=== PATIENT | female | born 1935 | race Caucasian/White ===

== ENCOUNTER 2016-12-24 16:20 | Emergency (ER) | payer MEDICAID ==
[~2016-12-24] VITALS: Ht 154.9 cm; Wt 76.7 kg
[2016-12-24 17:17] VITALS: BP 152/80
[2016-12-24] MEDS ORDERED: NACL 0.9% 1,000 ML IV ONE (18:32)
[2016-12-24] MEDS ORDERED: ALUMINUM HYD/MAG/SIMETHICONE 30 ML, DICYCLOMINE HCL LIQUID 20 MG, LIDOCAINE VISCOUS 2% ... PO ONE ×3 (18:35)
[2016-12-24] MEDS ORDERED: ONDANSETRON 4 MG/2 ML VIAL IVP ONE (18:35)
--- NOTE | 2016-12-24 18:57 | NUR ---
LABS DRAWN IN TRIAGE---MEDICATED FOR PAIN CONTROL WILL CONTINUE TO WAIT FOR AVAILABLE ROOM FOR MD GALEANA====
[2016-12-24 19:18] LABS: BASOPHILS # (AUTO) 0.3 K/uL (0.00-0.22); EOSINOPHILS # (AUTO) 0.3 K/uL (0-0.4); EOSINOPHILS % (AUTO) 3.3 % (0.0-4.0); HEMATOCRIT 40.3 % (36-48); HEMOGLOBIN 13.4 g/dL (12.0-16.0); LYMPHOCYTES # (AUTO) 2.4 K/uL (2.5-16.5); LYMPHOCYTES % (AUTO) 27.1 % (20.5-51.1); MEAN CORPUSCULAR HEMOGLOBIN 29 pg (27-31); MEAN CORPUSCULAR HGB CONC 33 g/dL (33-37); MEAN CORPUSCULAR VOLUME 88 fL (80-94); MONOCYTES # (AUTO) 0.7 K/uL (0.8-1.0); MONOCYTES % (AUTO) 7.7 % (1.7-9.3); PLATELET COUNT (AUTO) 241 K/uL (140-450); RED BLOOD CELL COUNT(AUTO) 4.55 MIL/uL (4.20-5.40); RED CELL DISTRIBUTION WIDTH 13.1 % (11.6-13.7); WHITE BLOOD COUNT (AUTO) 8.7 K/uL (4.8-10.8)
[2016-12-24 19:39] LABS: ANION GAP 11.4 (8-16); CALCIUM 8.6 mg/dL (8.5-10.1); CARBON DIOXIDE 31.4 mmol/L (21-32); CHLORIDE 104 mmol/L (98-107); CREATININE 0.8 mg/dL (0.6-1.3); GLUCOSE 95 mg/dL (74-106); POTASSIUM 3.8 mmol/L (3.5-5.1); SODIUM SERUM 143 mmol/L (136-145); UREA NITROGEN, BLOOD 12 mg/dL (7-18)
[2016-12-24 19:45] LABS: ALANINE AMINOTRANSFERASE 21 U/L (12-78); ALBUMIN 3.9 g/dL (3.4-5.0); ALKALINE PHOSPHATASE 57 U/L (46-116); AMYLASE 60 U/L (25-115); ASPARTATE AMINOTRANSFERASE 20 U/L (15-37); LIPASE 100 U/L (73-393); TOTAL BILIRUBIN 0.4 mg/dL (0.0-1.0); TOTAL PROTEIN, SERUM 8.3 g/dL (6.4-8.2)
--- NOTE | 2016-12-24 22:00 | NUR ---
PATIENT TO ER BED 8.
[2016-12-24 22:04] LABS: BILIRUBIN,URINE NEGATIVE (NEGATIVE); BLOOD, URINE NEGATIVE (NEGATIVE); COLOR,URINE YELLOW (YELLOW); LEUKOCYTE ESTERASE ,URINE NEGATIVE (NEGATIVE); NITRITE, URINE NEGATIVE (NEGATIVE); PROTEIN,URINE NEGATIVE (NEGATIVE); UGLUCOSE NEGATIVE (NEGATIVE); UROBILINOGEN,URINE 0.2 EU/dL (0.2 - 1)
[2016-12-24 22:05] LABS: APPEARANCE,URINE CLEAR (CLEAR)
--- NOTE | 2016-12-24 22:05 | NUR ---
C/O LUQ PAIN X 2 MONTHS USUALLY AT NIGHT WITH NAUSEA---DENIES WATER/LOOS STOOLS. PT STATES SHE HAS BEEN HAVING LEFT FLANK PAIN WITH A HARD NODULE TO THE LEFT BREAST X 2 WEEKS HX----HTN, HYPERLIPIDEMIA, ARTHRITIS, OSTEOPOROSIS
--- NOTE | 2016-12-24 22:22 | NUR ---
PATIENT BEING EVALUATED BY DR. LOPEZ.
[2016-12-24] MEDS ORDERED: KETOROLAC 60 MG/2 ML VIAL IM ONE ×2 (22:25)
[2016-12-24 23:16] VITALS: BP 136/84
--- NOTE | 2016-12-24 23:16 | NUR ---
Patient discharged with v/s stable. Written and verbal after care instructions given and explained. Patient alert, oriented and verbalized understanding of instructions. Ambulatory with steady gait. All questions addressed prior to discharge. ID band removed. Patient advised to follow up with PMD. Rx of MOTRIN 800MG AND PRILOSEC 40MG given. Patient educated on indication of medication including possible reaction and side effects. Opportunity to ask questions provided and answered.
== END 2016-12-24 23:16 | disposition home or self-care (01) ==
LOC: MED 16:20
DX: R10.12 Left upper quadrant pain (principal); Z88.0 Allergy status to penicillin; I10 Essential (primary) hypertension
CPT/HCPCS: 36415; 74176; 80053; 81003; 82150; 83690; 84484; 85025; 93005; 96372; 99285; J1885

== ENCOUNTER 2017-06-29 22:41 | Inpatient (IN) | payer MEDICAID ==
[~2017-06-29] VITALS: Ht 152.4 cm; Wt 61.2 kg
[2017-06-29 22:57] VITALS: BP 110/57
--- NOTE | 2017-06-29 23:01 | NUR ---
PT PROVIDED URINE CUP
--- NOTE | 2017-06-29 23:09 | NUR ---
pt to lobby awaiting room for MSE. VSS.
--- NOTE | 2017-06-30 02:04 | NUR ---
Patient to bed 12. RN evaluating patient at bedside.
--- NOTE | 2017-06-30 02:08 | NUR ---
Note undone in EDM - 06/30/17 at 0213 by VALDO PT BIB FAMILY C/O AB PAIN; FEVER 97.6F , CHILLS AND COUGH X 1 WEEK . PT DENIES N/V/D; SKIN IS INTACT, PINK/WARM/DRY; AAOX4, PERRL, WITH EVEN AND STEADY GAIT; LUNGS CLEAR BL, BREATHING UNLABORED; HR EVEN AND REGULAR, BL PERIPHERAL PULSES PRESENT; BS ACTIVE X4, NO TENDERNESS TO PALPATION, NO HEPATOSPLENOMEGALLY PALPATED, RESONANT TO PERCUSSION; PT DENIES ANY CP, SOB AT THIS TIME; PT STATES 4/10 PAIN AT THIS TIME; VSS; PATIENT POSITIONED FOR COMFORT; HOB ELEVATED; BEDRAILS UP X2; BED DOWN.
--- NOTE | 2017-06-30 02:09 | NUR ---
PT BIB FAMILY C/O AB PAIN; FEVER 97.6F , CHILLS AND COUGH X 1 WEEK . PT C/O MILD N/V; SKIN IS INTACT, PINK/WARM/DRY; AAOX4, PERRL, WITH EVEN AND STEADY GAIT; LUNGS CLEAR BL, BREATHING UNLABORED; HR EVEN AND REGULAR, BL PERIPHERAL PULSES PRESENT; BS ACTIVE X4, MILD TENDERNESS TO PALPATION. PT DENIES ANY CP, SOB AT THIS TIME; PT STATES 5/10 PAIN AT THIS TIME; VSS; PATIENT POSITIONED FOR COMFORT; HOB ELEVATED; BEDRAILS UP X2; BED DOWN. ABD NOTED TO BE SLIGHT DISTENDED WITH HYPOACTIVE BS NOTED. UA DONE
[2017-06-30] MEDS ORDERED: LISI10TA11 PO (02:25)
[2017-06-30] MEDS ORDERED: ALBU117P IH (02:25)
[2017-06-30] MEDS ORDERED: IBUP-2213 PO (02:25)
[2017-06-30] MEDS ORDERED: LEVOFLOXACIN 500 MG/D5W PREMIX 100 ML IV ONE (02:25)
[2017-06-30] MEDS ORDERED: NACL 0.9% 1,000 ML IV ONE (02:25)
[2017-06-30] MEDS ORDERED: CHLO25TA33 PO (02:26)
[2017-06-30 03:11] LABS: HEMATOCRIT 40.4 % (36-48); HEMOGLOBIN 13.4 g/dL (12.0-16.0); MEAN CORPUSCULAR HEMOGLOBIN 29 pg (27-31); MEAN CORPUSCULAR HGB CONC 33 g/dL (33-37); MEAN CORPUSCULAR VOLUME 89 fL (80-94); PLATELET COUNT (AUTO) 236 K/uL (140-450); RED BLOOD CELL COUNT(AUTO) 4.57 MIL/uL (4.20-5.40); RED CELL DISTRIBUTION WIDTH 12.8 % (11.6-13.7); WHITE BLOOD COUNT (AUTO) 13.6 K/uL (4.8-10.8)
[2017-06-30 03:16] LABS: ANION GAP 8.5 (8-16); CARBON DIOXIDE 35.7 mmol/L (21-32); CHLORIDE 95 mmol/L (98-107); CREATININE 1.5 mg/dL (0.6-1.3); GLUCOSE 101 mg/dL (74-106); POTASSIUM 3.2 mmol/L (3.5-5.1); SODIUM SERUM 136 mmol/L (136-145); UREA NITROGEN, BLOOD 30 mg/dL (7-18)
[2017-06-30 03:22] LABS: ALBUMIN 2.9 g/dL (3.4-5.0); ASPARTATE AMINOTRANSFERASE 40 U/L (15-37); TOTAL BILIRUBIN 0.7 mg/dL (0.0-1.0)
[2017-06-30 03:34] LABS: EOSINOPHILS % (MANUAL) 2 % (0-4); LYMPHOCYTES % (MANUAL) 18 % (20-46); MONOCYTES % (MANUAL) 2 % (5-12)
--- NOTE | 2017-06-30 04:05 | NUR ---
AZACTAM 1000MG NOT GIVEN, LEVAQUIN WAS GIVEN OVER 1 HOUR, TELE TO INFUSE
[2017-06-30] MEDS: NACL 0.9% 1,000 ML IV SCH ×2 (04:09→14:02)
[2017-06-30] MEDS ORDERED: ALBUTEROL SULFATE/IPRATROPIU 3 ML SOL IH PRN (04:10)
[2017-06-30] MEDS ORDERED: ONDANSETRON 4 MG/2 ML VIAL IVP PRN (04:10)
[2017-06-30] MEDS ORDERED: POTASSIUM CHLORIDE 10 MEQ TABER PO ONE (04:25)
--- NOTE | 2017-06-30 04:26 | NUR ---
Patient will be admitted to care of DR BRANNON. Admited to TELE 118. Will go to room 118. Belongings list completed. Report to AL LOWE .
[2017-06-30 04:30] VITALS: BP 126/65
--- NOTE | 2017-06-30 04:30 | NUR ---
Admitted from ER, with chief complaint of SOB, FEVER, BODY ACHES, DX ASP PNA 82 y/o, Female, Anxious, TURKISH-SPEAKING. PT'S DAUGHTER AT BEDSIDE. STARCH FACTORY LABORER SERVICE USED FOR ADMISSION PROCESS, JOVANI #[id number], PT ALSO AGREED TO HAVE PT'S DAUGHTER TRANSLATE FOR PT. PT AWAKE AND ALERT, C/O BODY ACHES. SPO2 95% ON O2 2L NC, RR 18 EVEN AND UNLABORED. IV ACCESS ASYMPTOMATIC, PATENT AND INTACT. WILL ADMINISTER IVF ORDERED. DISCUSSED AND REVIEWED PLAN OF CARE WITH PT AND PT'S DAUGHTER, VERBALIZED UNDERSTANDING. PT INSTRUCTED TO COLLECT URINE AND SPUTUM SAMPLES. PT VERBALIZED UNDERSTANDING. oriented to call light, bed, phone,television, bathroom, smoking policy, visiting hours, procedures, ID bracelet on. Belongings list checked.+ ALL NEEDS MET. SAFETY MEASURES ENSURED. CALL LIGHT WITHIN REACH. WILL CONTINUE TO MONITOR.
[2017-06-30] MEDS ORDERED: AZTREONAM 1,000 MG VIAL ONE (04:46)
[2017-06-30] MEDS ORDERED: CLINDAMYCIN 600 MG/4 ML VIAL ONE (04:46)
[2017-06-30] MEDS ORDERED: AZTREONAM 1,000 MG in DEXTROSE 5% 50 ML IV SCH (05:00)
[2017-06-30] MEDS: CLINDAMYCIN 600 MG in DEXTROSE 5% 50 ML IV SCH ×3 (05:57→20:12)
--- NOTE | 2017-06-30 07:15 | NUR ---
RECIEVEDT FROM NIGHT RN. PT STABLE. PT IN CONTACT ISO.
--- NOTE | 2017-06-30 07:15 | NUR ---
ENDORSED PLAN OF CARE TO AM NURSE. CONDITION STABLE.
[2017-06-30] MEDS: ALBUTEROL SULFATE/IPRATROPIU 3 ML SOL IH SCH ×3 (07:24→19:04)
[2017-06-30 08:00] VITALS: BP 125/64
--- NOTE | 2017-06-30 08:00 | NUR ---
Patient's Plan of Care was discussed and reviewed with BURNISHING MACHINE OPERATOR: MICHELET
[2017-06-30 08:26] LABS: PROTHROMBIN TIME 9.7 secs (10.8-13.4)
[2017-06-30 09:01] LABS: FREE T4 (FREE THYROXINE) 1.32 ng/dL (0.76-1.46); MAGNESIUM 2.1 mg/dL (1.8-2.4); PHOSPHORUS 2.6 mg/dL (2.5-4.9); THYROID STIMULATING HORMONE 4.7 uIU/mL (0.34-3.74)
--- NOTE | 2017-06-30 09:49 | NUR ---
MED GIVEN. ALEXA WELL. PT LYING IN HER BED WITH HER EYES OPEN. FAMILY AT BEDSIDE
[2017-06-30] MEDS: DOCUSATE SODIUM 100 MG GELCAP PO SCH ×2 (09:52→20:12)
[2017-06-30] MEDS: LACTOBACILLUS RHAMNOSUS GG 1 EACH CAP PO SCH (09:53)
--- NOTE | 2017-06-30 09:55 | NUR ---
PATIENT HAS BEEN SCREENED AND CATEGORIZED HIGH NUTRITION RISK. PATIENT WILL BE SEEN WITHIN 1-2 DAYS OF ADMISSION. 06/30/17-07/01/[address]
--- NOTE | 2017-06-30 09:58 | NUR ---
MEDICATION GIVEN. PT HAS A PRODUCTIVE COUGH. SPU COLLECTED. URINE SAMPLE NOT YET GIVEN. ISO PRECAUTIONS IN PLACE. PT STABLE
--- NOTE | 2017-06-30 12:30 | NUR ---
PT IN ISOLATION PT HAS COUGH.
[2017-06-30 12:41] VITALS: BP 125/51
[2017-06-30 16:00] VITALS: BP 104/49
[2017-06-30 18:49] LABS: APPEARANCE,URINE CLEAR (CLEAR); BILIRUBIN,URINE NEGATIVE (NEGATIVE); BLOOD, URINE NEGATIVE (NEGATIVE); COLOR,URINE YELLOW (YELLOW); LEUKOCYTE ESTERASE ,URINE NEGATIVE (NEGATIVE); NITRITE, URINE NEGATIVE (NEGATIVE); UGLUCOSE NEGATIVE (NEGATIVE)
[2017-06-30 19:00] LABS: BARBITURATE, URINE NEG. ng/ml (NEG <=200); BENZODIAZEPINE, URINE NEG. ng/mL (NEG <=200); CANNABINOID, URINE NEG. ng/mL (NEG <=50); COCAINE, URINE NEG. ng/mL (NEG <=300); OPIATE, URINE NEG. ng/mL (NEG <=2000); PHENCYCLIDINE SCREEN,URINE NEG. ng/mL (NEG <=25)
--- NOTE | 2017-06-30 19:30 | NUR ---
PATIENT REPORT RECEIVED FROM MORNING NURSE. PATIENT IS AWAKE AND ALERT. NO SIGNS AND SYMPTOMS OF DISTRESS NOTED. PATIENT'S FAMILY IS AT BEDSIDE. PATIENT IS AZERI SPEAKING, DAUGHTER ABLE TO TRANSLATE TO PATIENT. IV SITE NOTED ON RIGHT HAND, ASYMPTOMATIC, INTACT AND PATENT. PATIENT IS ON 3L O2 NC. PLAN OF CARE DISCUSSED WITH PATIENT AND FAMILY, BOTH FAMILY AND PATIENT VERBALIZED UNDERSTANDING. SAFETY PRECAUTIONS IN PLACE. BED IN LOWEST POSITION, SIDE RAILS UP AND CALL LIGHT WITHIN REACH. WILL CONTINUE TO MONITOR. Addendum: 06/30/17 at 2207 by Calos Ames RN 2L O2 NOT 3L
[2017-06-30 20:00] VITALS: BP 130/62
[2017-06-30] MEDS: ACETAMINOPHEN 325 MG TAB PO PRN (20:13)
--- NOTE | 2017-06-30 21:45 | NUR ---
ASSISTED PATIENT WITH BED GARCIA. PATIENT VOIDED. URINE IS YELLOW AND MODERATE IN AMOUNT. PATIENT TOLERATED WELL. WILL CONTINUE TO MONITOR.
--- NOTE | 2017-06-30 22:51 | NUR ---
ASSISTED PATIENT WITH BED GARCIA. PATIENT VOIDED. URINE IS YELLOW AND MODERATE IN AMOUNT. PATIENT TOLERATED WELL. WILL CONTINUE TO MONITOR.
[2017-07-01] VITALS: BP 117/55
[2017-07-01] MEDS: NACL 0.9% 1,000 ML IV SCH ×3 (00:09→20:48)
--- NOTE | 2017-07-01 01:00 | NUR ---
CHECKED ON PATIENT. PATIENT IS ASLEEP. NO SIGNS AND SYMPTOMS OF DISTRESS NOTED. BREATHING EVEN AND UNLABORED. BED IN LOWEST POSITION, SIDE RAILS UP AND CALL LIGHT WITHIN REACH. WILL CONTINUE TO MONITOR.
--- NOTE | 2017-07-01 03:00 | NUR ---
ASSISTED PATIENT WITH BED GARCIA. PATIENT VOIDED. URINE IS YELLOW AND MODERATE IN AMOUNT. PATIENT TOLERATED WELL. WILL CONTINUE TO MONITOR.
[2017-07-01 04:00] VITALS: BP 138/74
[2017-07-01] MEDS: CLINDAMYCIN 600 MG in DEXTROSE 5% 50 ML IV SCH ×3 (04:07→20:49)
--- NOTE | 2017-07-01 05:00 | NUR ---
CHECKED ON PATIENT. PATIENT IS ASLEEP. NO SIGNS AND SYMPTOMS OF DISTRESS NOTED. BED IN LOWEST POSITION, SIDE RAILS UP AND CALL LIGHT WITHIN REACH. WILL CONTINUE TO MONITOR.
[2017-07-01 06:50] LABS: BASOPHILS # (AUTO) 0.1 K/uL (0.00-0.22); BASOPHILS % (AUTO) 1.1 % (0.0-2.0); EOSINOPHILS # (AUTO) 0.1 K/uL (0-0.4); EOSINOPHILS % (AUTO) 1.8 % (0.0-4.0); HEMATOCRIT 33.2 % (36-48); HEMOGLOBIN 11.3 g/dL (12.0-16.0); MEAN CORPUSCULAR HEMOGLOBIN 30 pg (27-31); MEAN CORPUSCULAR HGB CONC 34 g/dL (33-37); MEAN CORPUSCULAR VOLUME 88 fL (80-94); MONOCYTES # (AUTO) 0.6 K/uL (0.8-1.0); MONOCYTES % (AUTO) 9.1 % (1.7-9.3); NEUTROPHILS # (AUTO) 3.7 K/uL (1.8-7.7); PLATELET COUNT (AUTO) 242 K/uL (140-450); RED BLOOD CELL COUNT(AUTO) 3.78 MIL/uL (4.20-5.40); RED CELL DISTRIBUTION WIDTH 12.6 % (11.6-13.7); WHITE BLOOD COUNT (AUTO) 6.5 K/uL (4.8-10.8)
[2017-07-01 07:02] LABS: CHOL/HDL RATIO 5.5 (1-4.5); MAGNESIUM 1.8 mg/dL (1.8-2.4); PHOSPHORUS 3.5 mg/dL (2.5-4.9)
--- NOTE | 2017-07-01 07:12 | NUR ---
PATIENT REPORT GIVEN TO MORNING NURSE AT BEDSIDE. PATIENT IS IN STABLE CONDITION
--- NOTE | 2017-07-01 07:12 | NUR ---
RECIEVED PT FROM NIGHT NURSE. PT RESTING IN HER BED WITH HER EYES CLOSED
[2017-07-01] MEDS: ALBUTEROL SULFATE/IPRATROPIU 3 ML SOL IH SCH ×3 (07:14→19:13)
--- NOTE | 2017-07-01 08:00 | NUR ---
Patient's Plan of Care was discussed and reviewed with OVERHEAD LINE WORKER: MICHELET HIRSCH
[2017-07-01] MEDS: DOCUSATE SODIUM 100 MG GELCAP PO SCH ×2 (08:04→20:52)
[2017-07-01] MEDS: LACTOBACILLUS RHAMNOSUS GG 1 EACH CAP PO SCH (08:04)
[2017-07-01 08:49] LABS: ANION GAP 8.7 (8-16); CARBON DIOXIDE 33.3 mmol/L (21-32); CHLORIDE 101 mmol/L (98-107); CREATININE 0.9 mg/dL (0.6-1.3); GLUCOSE 94 mg/dL (74-106); SODIUM SERUM 140 mmol/L (136-145); UREA NITROGEN, BLOOD 12 mg/dL (7-18)
[2017-07-01 10:26] VITALS: BP 120/56
[2017-07-01] MEDS ORDERED: FAMOTIDINE 20 MG TAB PO SCH (11:07)
[2017-07-01] MEDS ORDERED: LISINOPRIL 10 MG TAB PO SCH (11:08)
[2017-07-01] MEDS ORDERED: LORATADINE 10 MG TAB PO SCH (11:10)
[2017-07-01] MEDS ORDERED: POTASSIUM CHLORIDE 10 MEQ TABER PO SCH (11:13)
--- NOTE | 2017-07-01 11:30 | NUR ---
B/S DONE COVERAGE NEEDED. PT LYING IN HER BED WITH HER EYES OPEN Addendum: 07/01/17 at 1303 by Karthik Silva LVN, LVN WRONG PATIENT NOTE
[2017-07-01] MEDS ORDERED: POTASSIUM CHLORIDE 40 MEQ, LIDOCAINE 1% 25 MG in NACL 0.9% 250 ML IV SCH (12:30)
--- NOTE | 2017-07-01 13:00 | NUR ---
PT FAMILY AT BEDSIDE. PT LYING IN HER BED EATING HER LUNCH
--- NOTE | 2017-07-01 15:02 | NUR ---
PLEASE REFER TO NUTRITION ASSESSMENT UNDER CARE ACTIVITY FOR ESTIMATED NUTRITIONAL NEEDS. 1.RECOMMEND SWALLOW EVALUATION TO ASSESS PTS ABILITY TO SAFELY SWALLOW FOODS, ADJUST DIET ORDER TO REFLECT GRID TRIMMER RECOMMENDATIONS ONCE SWALLOW EVAL IS COMPLETE. 2.DIETARY WILL PROVIDE HEALTH SHAKES TID FOR ADDITIONAL NUTRITION SUPPORT 3.RD TO FOLLOW-UP IN 2-3 DAYS, HIGH RISK PRABHJOT DAVIS RD
[2017-07-01] MEDS: MONTELUKAST SODIUM 10 MG TAB PO SCH (17:30)
--- NOTE | 2017-07-01 17:35 | NUR ---
PT C/O DIFFICULTY SWALLOWING INFORMED MD GROUP.
--- NOTE | 2017-07-01 19:30 | NUR ---
PATIENT REPORT RECEIVED FROM MORNING NURSE. PATIENT IS AWAKE, ALERT AND ORIENTED. NO SIGNS AND SYMPTOMS OF DISTRESS NOTED. NO COMPLAINTS OF PAIN AT THIS TIME. PATIENT IS ON O2 2L VIA NC. FAMILY IS AT BEDSIDE. IV SITE NOTED ON RIGHT HAND. SITE IS ASYMPTOMATIC, INTACT, AND PATENT. IVF INFUSING WELL. BED IN LOWEST POSITION, SIDE RAILS UP AND CALL LIGHT WITHIN REACH WILL CONTINUE TO MONITOR.
[2017-07-01 19:33] VITALS: BP 118/62
[2017-07-01] MEDS: LEVOFLOXACIN 750 MG/D5W PREMIX 150 ML IV SCH (21:00)
--- NOTE | 2017-07-01 21:30 | NUR ---
CHECKED ON PATIENT. PATIENT IS ASLEEP, NO SIGNS AND SYMPTOMS OF DISTRESS NOTED. BED IN LOWEST POSITION, SIDE RAILS UP AND CALL LIGHT WITHIN REACH. WILL CONTINUE TO MONITOR.
[2017-07-02] VITALS: BP 110/62
[2017-07-02 04:00] VITALS: BP 122/56
[2017-07-02] MEDS: CLINDAMYCIN 600 MG in DEXTROSE 5% 50 ML IV SCH ×3 (04:44→20:46)
[2017-07-02] MEDS: NACL 0.9% 1,000 ML IV SCH ×2 (06:09→16:14)
[2017-07-02] MEDS: ALBUTEROL SULFATE/IPRATROPIU 3 ML SOL IH SCH ×3 (07:20→19:14)
[2017-07-02 07:28] LABS: ANION GAP 11.1 (8-16); CARBON DIOXIDE 29.8 mmol/L (21-32); CHLORIDE 104 mmol/L (98-107); CREATININE 0.8 mg/dL (0.6-1.3); GLUCOSE 97 mg/dL (74-106); POTASSIUM 3.9 mmol/L (3.5-5.1); SODIUM SERUM 141 mmol/L (136-145); UREA NITROGEN, BLOOD 7 mg/dL (7-18)
--- NOTE | 2017-07-02 07:32 | NUR ---
PATIENT REPORT GIVEN TO MORNING NURSE. PATIENT IS IN STABLE CONDITION
--- NOTE | 2017-07-02 07:35 | NUR ---
RECEIVED REPORT FROM TANKROOM TENDER NURSE, PT IS RESTING IN BED, A/OX4, AMBULATES WITH ASSIST, PT HAS IV ON HER RIGHT FA, PATENT, INTACT, FLUSHING WELL, SKIN IS INTACT, NO S/S OF RESPIRATORY DISTRESS OR DISCOMFORT NOTED, DISCUSSED PLAN OF CARE WITH PT, PT VERBALIZED UNDERSTANDING, SAFETY/FALL PRECAUTIONS ARE IN PLACE, CALL LIGHT IS WITHIN REACH, WILL CONTINUE TO MONITOR.
[2017-07-02 07:36] LABS: BASOPHILS # (AUTO) 0.1 K/uL (0.00-0.22); BASOPHILS % (AUTO) 0.7 % (0.0-2.0); EOSINOPHILS # (AUTO) 0.1 K/uL (0-0.4); EOSINOPHILS % (AUTO) 1.6 % (0.0-4.0); HEMATOCRIT 33.2 % (36-48); HEMOGLOBIN 11.4 g/dL (12.0-16.0); LYMPHOCYTES # (AUTO) 1.8 K/uL (2.5-16.5); LYMPHOCYTES % (AUTO) 24.3 % (20.5-51.1); MEAN CORPUSCULAR HEMOGLOBIN 30 pg (27-31); MEAN CORPUSCULAR HGB CONC 35 g/dL (33-37); MEAN CORPUSCULAR VOLUME 88 fL (80-94); MONOCYTES % (AUTO) 12.6 % (1.7-9.3); NEUTROPHILS # (AUTO) 4.6 K/uL (1.8-7.7); NEUTROPHILS % (AUTO) 60.8 % (42.2-75.2); PLATELET COUNT (AUTO) 272 K/uL (140-450); RED BLOOD CELL COUNT(AUTO) 3.78 MIL/uL (4.20-5.40); RED CELL DISTRIBUTION WIDTH 12.7 % (11.6-13.7); WHITE BLOOD COUNT (AUTO) 7.6 K/uL (4.8-10.8)
[2017-07-02 07:38] LABS: ALBUMIN 2.1 g/dL (3.4-5.0); MAGNESIUM 1.6 mg/dL (1.8-2.4)
[2017-07-02 08:00] VITALS: BP 128/56
[2017-07-02] MEDS: DOCUSATE SODIUM 100 MG GELCAP PO SCH ×2 (09:21→20:46)
[2017-07-02] MEDS: LACTOBACILLUS RHAMNOSUS GG 1 EACH CAP PO SCH (09:21)
--- NOTE | 2017-07-02 09:21 | NUR ---
DUE MEDICATIONS GIVEN, PT TOLERATED WELL. PATIENT'S DAUGHTER IS AT BEDSIDE, CALL LIGHT IS WITHIN REACH.
[2017-07-02] MEDS: FAMOTIDINE 20 MG TAB PO SCH (09:22)
[2017-07-02] MEDS: LORATADINE 10 MG TAB PO SCH (09:23)
[2017-07-02] MEDS: LISINOPRIL 10 MG TAB PO SCH (09:24)
--- NOTE | 2017-07-02 09:25 | NUR ---
PATIENT AMBULATED TO BATHROOM WITH 2 PERSON ASSIST FROM RN AND DAUGHTER. GAIT WAS SLOW AND UNSTEADY. PATIENT HAD A BM, SOFT, BROWN AND FORMED, URINE CLEAR AND YELLOW. ADMINISTERED MORNING MEDICATIONS. PATIENT TOLERATED THEM WELL. NO SIGNS OF DISTRESS NOTED. PATIENT DENIES PAIN. SAFETY PRECAUTIONS IN PLACE. BED ON LOWEST SETTING. BED ALARM ON. CALL LIGHT WITHIN REACH. DAUGHTER AT BEDSIDE. WILL CONTINUE TO MONITOR PATIENT.
--- NOTE | 2017-07-02 11:10 | NUR ---
PATIENT SLEEPING IN BED AT THIS TIME, PATIENT'S DAUGHTER IS AT BEDSIDE, CALL LIGHT WITHIN REACH.
[2017-07-02] MEDS ORDERED: MAG SULF 2000 MG/WATER PREMIX 50 ML IV SCH (11:43)
[2017-07-02 12:00] VITALS: BP 122/63
--- NOTE | 2017-07-02 13:22 | NUR ---
PT RESTING IN BED WATCHING TV, PT'S DAUGHTER IS AT BEDSIDE, CALL LIGHT WITHIN REACH.
[2017-07-02] MEDS: ACETAMINOPHEN 325 MG TAB PO PRN (14:38)
[2017-07-02 16:00] VITALS: BP 103/54
[2017-07-02] MEDS: MONTELUKAST SODIUM 10 MG TAB PO SCH (16:37)
[2017-07-02] MEDS ORDERED: KETOROLAC 15 MG/ML VIAL IVP SCH (17:15)
--- NOTE | 2017-07-02 17:43 | NUR ---
DUE MEDICATION GIVEN. PATIENT TOLERATED IT WELL. EXPLAINED SIDE EFFECTS TO PATIENT AND SON. NO SIGNS OF DISTRESS NOTED. SAFETY PRECAUTIONS IN PLACE. WILL CONTINUE TO MONITOR PATIENT.
--- NOTE | 2017-07-02 18:13 | NUR ---
PATIENT SITTING IN BED EATING DINNER. SON AT BEDSIDE. NO SIGNS OF DISTRESS OR SOB NOTED. SAFETY PRECAUTIONS IN PLACE. BED ON LOWEST SETTING. CALL LIGHT WITHIN REACH. WILL CONTINUE TO MONITOR PATIENT.
--- NOTE | 2017-07-02 19:17 | NUR ---
GAVE REPORT TO MANIFOLD OPERATOR RN AT BEDSIDE FOR CONTINUITY OF CARE. PATIENT IN STABLE CONDITION.
--- NOTE | 2017-07-02 19:18 | NUR ---
RECEIVED PT IN BED, SITTING AND TALKING TO HER SON AT BEDSIDE. AAOX4. NO C/O PAIN OR DISCOMFORT. IV TO RIGHT HAND #18G WITH NORMAL SALINE AT 100 ML/HR, INFUSING WELL. DISCUSSED PLAN OF CARE, PT AND SON VERBALIZED UNDERSTANDING. SAFETY PRECAUTION IN PLACE. CALL LIGHT WITHIN REACH. WILL CONTINUE TO MONITOR.
[2017-07-02 20:00] VITALS: BP 119/60
[2017-07-02] MEDS ORDERED: CLINDAMYCIN 600 MG/4 ML VIAL ONE (20:51)
--- NOTE | 2017-07-02 21:00 | NUR ---
DUE MEDS GIVEN. PT IN BED, WATCHING TV. PT SON AT BEDSIDE. ALL NEEDS MET AT THIS TIME. NO DISTRESS NOTED. CALL LIGHT WITHIN REACH.
[2017-07-03] VITALS: BP_SYST 125; BP_DIAS 6; BP_DIAS 69
--- NOTE | 2017-07-03 00:05 | NUR ---
PT SLEEPING. NO S/S OF DISTRESS. SAFETY PRECAUTION IN PLACE. CALL LIGHT WITHIN REACH.
--- NOTE | 2017-07-03 00:54 | NUR ---
PT SLEEPING. NO S/S OF DISTRESS. CALL LIGHT WITHIN REACH.
[2017-07-03 04:00] VITALS: BP 115/60
[2017-07-03] MEDS: CLINDAMYCIN 600 MG in DEXTROSE 5% 50 ML IV SCH ×3 (04:45→20:42)
--- NOTE | 2017-07-03 05:45 | NUR ---
PT SLEEPING BUT WAKES EASILY. NO S/S OF PAIN OR DISCOMFORT. SAFETY/FALL PRECAUTION IN PLACE. CALL LIGHT WITHIN REACH.
--- NOTE | 2017-07-03 07:15 | NUR ---
ENDORSED PT TO DAY SHIFT NURSE. PT IN STABLE CONDITION.
--- NOTE | 2017-07-03 07:20 | NUR ---
RECEIVED REPORT FROM WORLD GEOGRAPHY TEACHER NURSE, PT IS RESTING IN BED, A/OX4, AMBULATES WITH ASSIST, PT HAS IV ON HER RIGHT FA, PATENT, INTACT, FLUSHING WELL, SKIN IS INTACT, NO S/S OF RESPIRATORY DISTRESS OR DISCOMFORT NOTED, DISCUSSED PLAN OF CARE WITH PT, PT VERBALIZED UNDERSTANDING, SAFETY/FALL PRECAUTIONS ARE IN PLACE, CALL LIGHT IS WITHIN REACH, WILL CONTINUE TO MONITOR.
[2017-07-03] MEDS: ALBUTEROL SULFATE/IPRATROPIU 3 ML SOL IH SCH ×3 (07:55→18:52)
[2017-07-03 08:00] VITALS: BP 130/66
[2017-07-03] MEDS: NACL 0.9% 1,000 ML IV SCH (08:22)
[2017-07-03] MEDS: LISINOPRIL 10 MG TAB PO SCH (08:40)
[2017-07-03] MEDS: DOCUSATE SODIUM 100 MG GELCAP PO SCH ×2 (08:40→20:42)
[2017-07-03] MEDS: LACTOBACILLUS RHAMNOSUS GG 1 EACH CAP PO SCH (08:41)
[2017-07-03] MEDS: FAMOTIDINE 20 MG TAB PO SCH (08:41)
[2017-07-03] MEDS: LORATADINE 10 MG TAB PO SCH (08:41)
[2017-07-03] MEDS: ACETAMINOPHEN 325 MG TAB PO PRN (08:41)
[2017-07-03] MEDS: BENZOCAINE/MENTHOL 1 LOZ MM PRN (08:42)
[2017-07-03 08:45] LABS: BASOPHILS # (AUTO) 0.1 K/uL (0.00-0.22); BASOPHILS % (AUTO) 0.7 % (0.0-2.0); EOSINOPHILS # (AUTO) 0.2 K/uL (0-0.4); EOSINOPHILS % (AUTO) 2.7 % (0.0-4.0); HEMATOCRIT 36.6 % (36-48); HEMOGLOBIN 12.2 g/dL (12.0-16.0); LYMPHOCYTES # (AUTO) 1.7 K/uL (2.5-16.5); LYMPHOCYTES % (AUTO) 19.1 % (20.5-51.1); MEAN CORPUSCULAR HEMOGLOBIN 29 pg (27-31); MEAN CORPUSCULAR HGB CONC 33 g/dL (33-37); MEAN CORPUSCULAR VOLUME 88 fL (80-94); MONOCYTES # (AUTO) 0.8 K/uL (0.8-1.0); MONOCYTES % (AUTO) 8.3 % (1.7-9.3); NEUTROPHILS # (AUTO) 6.3 K/uL (1.8-7.7); NEUTROPHILS % (AUTO) 69.2 % (42.2-75.2); PLATELET COUNT (AUTO) 312 K/uL (140-450); RED BLOOD CELL COUNT(AUTO) 4.16 MIL/uL (4.20-5.40); RED CELL DISTRIBUTION WIDTH 12.9 % (11.6-13.7); WHITE BLOOD COUNT (AUTO) 9.1 K/uL (4.8-10.8)
[2017-07-03 09:34] LABS: ANION GAP 10.4 (8-16); CARBON DIOXIDE 28.8 mmol/L (21-32); CHLORIDE 105 mmol/L (98-107); CREATININE 0.7 mg/dL (0.6-1.3); GLUCOSE 98 mg/dL (74-106); POTASSIUM 4.2 mmol/L (3.5-5.1); SODIUM SERUM 140 mmol/L (136-145); UREA NITROGEN, BLOOD 7 mg/dL (7-18)
[2017-07-03 09:47] LABS: PHOSPHORUS 3.7 mg/dL (2.5-4.9)
--- NOTE | 2017-07-03 10:00 | NUR ---
PT RESTING IN BED AT THIS TIME, PATIENT'S DAUGHTER IS AT BEDSIDE AT THIS TIME.
--- NOTE | 2017-07-03 10:33 | NUR ---
07/03/17 RD FOLLOW UP COMPLETED PLEASE REFER TO NUTRITION PROGRESS NOTE UNDER CARE ACTIVITY FOR ESTIMATED NUTRITION NEEDS. RD RECOMMENDATIONS: 1. CONTINUE ON REGULAR DIET TOLERATED. 2. PATIENT RECEIVES HEALTH SHAKES (6-OZ) WITH MEALS TID TO HELP MEET ESTIMATED NEEDS. 3. RDN WILL F/U 3-5 DAYS; MODERATE RISK. RADHA COOK MS, RDN
[2017-07-03] MEDS: methylPREDNISolone SS 125 MG/2 ML VIAL IVP SCH (11:44)
[2017-07-03 12:00] VITALS: BP 116/63
--- NOTE | 2017-07-03 13:20 | NUR ---
PT IS SITTING IN BED, EATING LUNCH, PT DAUGHTER IS AT BEDSIDE ASSISTING PT WITH FEEDING.
--- NOTE | 2017-07-03 15:59 | NUR ---
X-RAY TECH IS AT PATIENT'S BEDSIDE AT THIS TIME.
[2017-07-03 16:00] VITALS: BP 125/66
[2017-07-03] MEDS: MONTELUKAST SODIUM 10 MG TAB PO SCH (17:06)
[2017-07-03] MEDS ORDERED: APAP/BUTAL/CAFF 325/50/40 MG 1 TAB PO PRN (17:10)
--- NOTE | 2017-07-03 18:00 | NUR ---
ASSISTED PT TO BATHROOM AND BACK INTO BED, PT HAS UNSTEADY GAIT, 2 PERSON ASSIST REQUIRED.
--- NOTE | 2017-07-03 19:06 | NUR ---
ENDORSED PT TO PROOFSHEET CORRECTOR NURSE FOR CONTINUITY OF CARE. PT STABLE AT THIS TIME.
--- NOTE | 2017-07-03 19:08 | NUR ---
RECEIVED PT IN BED, WATCHING TV. AAOX4. NO C/O PAIN OR DISCOMFORT. IV TO RIGHT HAND #18G WITH NORMAL SALINE AT 100 ML/HR, INFUSING WELL. SAFETY PRECAUTION IN PLACE. CALL LIGHT WITHIN REACH. WILL CONTINUE TO MONITOR.
[2017-07-03 20:00] VITALS: BP 125/62
[2017-07-03] MEDS: LEVOFLOXACIN 750 MG/D5W PREMIX 150 ML IV SCH (20:49)
--- NOTE | 2017-07-03 21:45 | NUR ---
PT LYING IN BED, TALKING TO HER DAUGHTER AT BEDSIDE. NO C/O PAIN OR DISCOMFORT. ALL NEEDS MET AT THIS TIME. CALL LIGHT WITHIN REACH.
--- NOTE | 2017-07-03 23:30 | NUR ---
ENDORSED PT TO CHARGE NURSE FOR CONTINUITY OF CARE. PT IN STABLE CONDITION. Addendum: 07/04/17 at 0154 by Sanjana Gonzalez RN WRONG PATIENT
[2017-07-04] VITALS: BP 125/63
--- NOTE | 2017-07-04 00:06 | NUR ---
PT SLEEPING. NO S/S OF DISTRESS. SAFETY PRECAUTION IN PLACE. CALL LIGHT WITHIN REACH.
[2017-07-04] MEDS: NACL 0.9% 1,000 ML IV SCH ×2 (01:05→15:12)
--- NOTE | 2017-07-04 02:40 | NUR ---
PT SLEEPING BUT WAKES EASILY. NO S/S OF PAIN OR DISCOMFORT. SAFETY PRECAUTION IN PLACE. CALL LIGHT WITHIN REACH.
[2017-07-04 04:00] VITALS: BP 105/61
[2017-07-04] MEDS: CLINDAMYCIN 600 MG in DEXTROSE 5% 50 ML IV SCH ×2 (04:49→13:10)
--- NOTE | 2017-07-04 04:50 | NUR ---
PT EATING SANDWICH. NO C/O PAIN OR SOB. ALL NEEDS MET AT THIS TIME. CALL LIGHT WITHIN REACH.
--- NOTE | 2017-07-04 07:20 | NUR ---
ENDORSED PT TO DAY SHIFT NURSE. PT IN STABLE CONDITION.
--- NOTE | 2017-07-04 07:25 | NUR ---
ENDORSEMENT RECEIVED FROM PLATE MILL MILL HAND NURSE. PATIENT IS AWAKE, ALERT. RESPIRATION EVEN, UNLABOR. SKIN DRY AND WARM. DENIED PAIN, N./V AT THIS TIME. IV PATENT AND INTACT. CALL LIGHT WITHIN REACH. BED AT LOW POSITION, SIDE RAILS UP. PLAN OF CARE WAS DISCUSSED WITH PATIENT.
[2017-07-04 08:00] VITALS: BP 122/56
[2017-07-04] MEDS: ALBUTEROL SULFATE/IPRATROPIU 3 ML SOL IH SCH ×3 (08:31→20:46)
[2017-07-04] MEDS: DOCUSATE SODIUM 100 MG GELCAP PO SCH ×2 (09:00→21:20)
--- NOTE | 2017-07-04 09:00 | NUR ---
RIGHT ARM AND HAND IS SWOLLEN. PATIENT COMPLAINED OF PAIN. IV WAS REMOVED. LEFT ARM WAS ELEVATED. DR. MARTINEZ WAS MADE AWARE
[2017-07-04] MEDS: LISINOPRIL 10 MG TAB PO SCH (09:18)
[2017-07-04] MEDS: FAMOTIDINE 20 MG TAB PO SCH (09:19)
[2017-07-04] MEDS: LACTOBACILLUS RHAMNOSUS GG 1 EACH CAP PO SCH (09:19)
[2017-07-04] MEDS: LORATADINE 10 MG TAB PO SCH (09:19)
--- NOTE | 2017-07-04 11:00 | NUR ---
NEW IV WAS PLACED ON LEFT FOREARM 22G. OLD IV 22G WAS REMOVED ON RIGHT FOREARM, CATHETER TIP INTACT. PATIENT TOLERATED WELL.
[2017-07-04] MEDS: methylPREDNISolone SS 125 MG/2 ML VIAL IVP SCH (11:26)
[2017-07-04 12:00] VITALS: BP 106/51
--- NOTE | 2017-07-04 12:30 | NUR ---
PATIENT IS AWAKE, ALERT. RESPIRATION EVEN, UNLABOR. DENIED PAIN, N/V AT THIS TIME. FAMILY AT BEDSIDE. CALL LIGHT WITHIN REACH
[2017-07-04 16:00] VITALS: BP 112/51
[2017-07-04] MEDS: MONTELUKAST SODIUM 10 MG TAB PO SCH (17:19)
--- NOTE | 2017-07-04 18:17 | NUR ---
PATIENT WAS SAT ON THE CHAIR FOR DINNER. PATIENT TOLERATED WELL. PATIENT WAS INSTRUCTED TO USE THE IS EVERY HOUR RESPIRATION EVEN, UNLABOR.. DENIED PAIN, DIZZINESS AT THIS TIME. IV PATENT AND INTACT. CALL LIGHT WITHIN REACH. FAMILY AT BEDSIDE
--- NOTE | 2017-07-04 19:23 | NUR ---
ENDORSEMENT GIVEN TO THE NURSE BEHAVIORAL HEALTH CARE NURSE. PATIENT IS STABLE AT THIS TIME
--- NOTE | 2017-07-04 19:24 | NUR ---
RECEIVED PT FROM BENJAMÍN RN PT MALTESE SPEAKER AAOX4 AMBUALTES WITH HAND ALTERATIONS TAILOR ON 08 05 LTS VIA NC NOT SOB NOTED ON TELEMETRY SR IV ON LEFT FA INFUSING WELL RELATIVES AT BED SIDE INNITAL ASSESSMENT DONE
[2017-07-04 20:00] VITALS: BP 113/57
--- NOTE | 2017-07-04 21:00 | NUR ---
PT IS ASSITED TO THE RESTROOM AND ONE SMALL BM NOT DISTRESS NOTED
[2017-07-04] MEDS: BENZOCAINE/MENTHOL 1 LOZ MM PRN (22:26)
[2017-07-05] VITALS: BP 141/69
--- NOTE | 2017-07-05 | NUR ---
PT REPOSITIONED Q2H NOT DISTRESS NOTED ON TELEMETRY SR SLEEPING WELL AT THIS TIME
--- NOTE | 2017-07-05 03:00 | NUR ---
LINEN CHANGED PT REPOSITIONED NOT FEVER DENIES ANY PAIN ON TELEMETRY SR
[2017-07-05] MEDS: NACL 0.9% 1,000 ML IV SCH (03:16)
[2017-07-05 04:00] VITALS: BP 143/71
--- NOTE | 2017-07-05 05:00 | NUR ---
ON TELEMETRY SR SLEEPING WELL NOT DISTRESS NOTED REPOSITIONED Q2H
[2017-07-05] MEDS: ALBUTEROL SULFATE/IPRATROPIU 3 ML SOL IH SCH ×2 (06:27→12:44)
--- NOTE | 2017-07-05 06:51 | NUR ---
PT RESTING ON BED NOT DISTRESS NOTED ON TELE SR IV ON LEFT ARM INFUSING WELL
--- NOTE | 2017-07-05 07:15 | NUR ---
RECEIVED REPORT FROM ACID CORRECTION HAND NURSE. PATIENT LYING IN BED SLEEPING, AROUSABLE BY VOICE. NO DISTRESS NOTED. RESPIRATIONS EVEN, UNLABORED, ON O2 2L/MIN VIA NC. AAOX4, CALM, COOPERATIVE, SKIN COLOR APPROPRIATE TO ETHNICITY, WARM TO TOUCH. SKIN IS INTACT THROUGHOUT BODY. DENIES ANY PAIN AT THIS TIME. LUNGS CTA ON ALL LOBES. ABDOMEN SOFT, NON-DISTENDED. IV SITE IS INTACT, PATENT, AND INFUSING IVF PER ORDERS. REVIEWED PLAN OF CARE WITH PATIENT. PATIENT VERBALIZED UNDERSTANDING. SAFETY MEASURES IN PLACE, CALL LIGHT WITHIN REACH, FALL PREVENTIONS IN PLACE. WILL CONTINUE TO MONITOR.
[2017-07-05 08:00] VITALS: BP 148/63
--- NOTE | 2017-07-05 09:15 | NUR ---
PHYSICAL THERAPISTS AT BEDSIDE WITH PATIENT. WILL CONTINUE TO MONITOR.
--- NOTE | 2017-07-05 09:30 | NUR ---
PATIENT WALKING IN HALLWAY USING A WALKER WITH PHYSICAL THERAPIST AT SIDE. WILL CONTINUE TO MONITOR.
[2017-07-05] MEDS: LORATADINE 10 MG TAB PO SCH (09:56)
[2017-07-05] MEDS: LACTOBACILLUS RHAMNOSUS GG 1 EACH CAP PO SCH (09:56)
[2017-07-05] MEDS: DOCUSATE SODIUM 100 MG GELCAP PO SCH (09:56)
[2017-07-05] MEDS: LISINOPRIL 10 MG TAB PO SCH (09:56)
[2017-07-05] MEDS: FAMOTIDINE 20 MG TAB PO SCH (09:56)
[2017-07-05] MEDS: methylPREDNISolone SS 125 MG/2 ML VIAL IVP SCH (11:59)
[2017-07-05 12:00] VITALS: BP 126/64
--- NOTE | 2017-07-05 12:04 | NUR ---
PATIENT SITTING IN BED WITH LUNCH TRAY IN FRONT. NO DISTRESS NOTED. DENIES ANY PAIN. RESPIRATIONS EVEN, UNLABORED, ON O2 2L/MIN VIA NC. SCHEDULED MEDICATIONS DUE GIVEN. SAFETY MEASURES IN PLACE, CALL LIGHT WITHIN REACH. WILL CONTINUE TO MONITOR.
[2017-07-05] MEDS ORDERED: SODIUM CHLORIDE FLUSH 10 ML SYR IVF SCH (13:00)
--- NOTE | 2017-07-05 13:28 | NUR ---
PATIENT SITTING IN BED WITH LUNCH TRAY IN FRONT. NO DISTRESS NOTED. DENIES ANY PAIN. RESPIRATIONS EVEN, UNLABORED, ON O2 2L/MIN VIA NC. SAFETY MEASURES IN PLACE, CALL LIGHT WITHIN REACH. WILL CONTINUE TO MONITOR.
--- NOTE | 2017-07-05 15:37 | NUR ---
PERFORMED INCENTIVE SPIROMETER EXERCISES WITH PATIENT. STANDBY ASSISTANCE PROVIDED TO PATIENT PATIENT AMBULATED FROM BED TO BATHROOM, THEN FROM BATHROOM TO CHAIR NEXT TO BED USING A CANE. O2 SAT 92-93% ON ROOM AIR. SAFETY MEASURES IN PLACE, CALL LIGHT WITHIN REACH. WILL CONTINUE TO MONITOR.
[2017-07-05 16:00] VITALS: BP 138/73
[2017-07-05] MEDS: MONTELUKAST SODIUM 10 MG TAB PO SCH (16:11)
--- NOTE | 2017-07-05 16:12 | NUR ---
PATIENT SITTING IN CHAIR NEAR BEDSIDE WATCHING TV. NO DISTRESS NOTED. RESPIRATIONS EVEN, UNLABORED, ON ROOM AIR WITH O2 SAT AT 91-92%. DENIES DYSPNEA. SCHEDULED MEDICATIONS DUE GIVEN. SAFETY MEASURES IN PLACE, CALL LIGHT WITHIN REACH. WILL CONTINUE TO MONITOR.
[2017-07-05] MEDS ORDERED: LISI10TA11 PO (17:29)
[2017-07-05] MEDS ORDERED: LEVO750T2 PO (17:31)
[2017-07-05] MEDS ORDERED: CLIN300C2 PO (17:32)
[2017-07-05] MEDS ORDERED: PRED50TA3 PO (17:32)
--- NOTE | 2017-07-05 18:00 | NUR ---
PATIENT SITTING IN CHAIR AT BEDSIDE WITH SON AT BEDSIDE. NO DISTRESS NOTED. DENIES ANY PAIN. PATIENT TO BE DISCHARGED HOME TODAY VIA PRIVATE VEHICLE. DISCHARGE INSTRUCTIONS/EDUCATIONS GIVEN TO PATIENT/SON IN POLISH, PATIENT PREFERRED TO USE SON BUSINESS PROCESS ASSOCIATE INSTEAD OF OFFICIAL BUSINESS PROCESS ASSOCIATE SERVICES VIA BLUE PHONE. FOLLOW-UP INSTRUCTIONS WITH DR. MERRILL GROUP, NEW/CHANGED MEDICATIONS REGIMEN, AND DIET REGIMEN EDUCATION PROVIDED TO PATIENT/SON. ANSWERED ALL OF PATIENT/SON QUESTIONS REGARDING DISCHARGE. PATIENT/SON VERBALIZED COMPLETE UNDERSTANDING. ALL BELONGINGS WITH PATIENT. IV SITE REMOVED WITH MINIMAL BLOOD AND LUMEN COMPLETELY INTACT. ID BANDS REMOVED. AWAITING FOR ANOTHER SON TO ARRIVE TO TAKE PATIENT HOME.
--- NOTE | 2017-07-05 18:13 | NUR ---
* ST NOTE * Pt seen at bedside w/son present. Pt consenting to evaluation w/son present. Pt alert, cooperative and engaged throughout session, reporting no c/o pain at this time. Bedside dysphagia and oral mechanism exams completed. See evaluation report for further details. Pt tolerating 4/4 alternating PO trials of regular solid lesly crackers as well as 5/5 alternating PO trials of successive sips of thin liquid apple juice via a straw, all w/o s/s of aspiration. Pt exhibiting occasional residue in oral cavity after PO intake of regular solids but clearing oral cavity of residue by utilizing lingual sweep & alternating btwn solids and liquids safe swallow compensatory strategy as trained by clinician. It is thus recommended pt's PO diet consistency may remain as regular solids w/thin liquids upon pt's potential d/c home tonight, w/pt and caregiver/son verbalizing understanding and agreement w/clinician's recommendations. Lastly pt and caregiver/son education also completed regarding aspiration precautions during pt's PO intake 2/2 to pt's hx of aspiration PNA w/pt and caregiver/son agreeable and demonstrating follow through. No further ST follow up recommended at this time. Pt, caregiver/son & caregiver/nsg education completed regarding results of evaluation, benefits of abiding by aspiration precautions & prognosis for improvement, w/pt, caregiver/son & caregiver/nsg verbalizing understanding and agreement w/clinician's recommendations. Recommend: - Continue PO diet consistency of REGULAR SOLIDS W/THIN LIQUIDS for all meals - Maintain aspiration precautions during pt's PO intake 2/2 to pt's hx of aspiration PNA No further ST follow up recommended at this time. G8996 [id number] G8998 NOMS Level 1 Time In/Out 16:45 - 17:15
--- NOTE | 2017-07-05 18:40 | NUR ---
PATIENT'S OTHER SON ARRIVED AND IS WAITING OUTSIDE IN THE [facility] LOBBY VIA PRIVATE VEHICLE. ESCORTED PATIENT DOWN VIA WHEELCHAIR AND ASSISTED PATIENT ENTER SON'S VEHICLE. PATIENT DISCHARGED AT THIS TIME VIA HOME IN PRIVATE VEHICLE IN STABLE CONDITION. ALL BELONGINGS WITH PATIENT.
== END 2017-07-05 18:40 | disposition home or self-care (01) | DRG 720 ==
LOC: MED 22:41 → MTU 06-30 03:17
PROVIDERS: ADMIT Family Medicine Sports Medicine; ATTEND Family Medicine Sports Medicine
DX: A41.9 Sepsis, unspecified organism (principal); N17.0 Acute kidney failure with tubular necrosis; J96.01 Acute respiratory failure with hypoxia; J69.0 Pneumonitis due to inhalation of food and vomit; E43 Unspecified severe protein-calorie malnutrition; I42.0 Dilated cardiomyopathy; E86.0 Dehydration; I11.9 Hypertensive heart disease without heart failure; E87.6 Hypokalemia; E87.8 Other disorders of electrolyte and fluid balance, not elsewhere classified; J45.909 Unspecified asthma, uncomplicated; E02 Subclinical iodine-deficiency hypothyroidism; Z88.0 Allergy status to penicillin; Z91.19 Patient's noncompliance with other medical treatment and regimen; Z68.26 Body mass index [BMI] 26.0-26.9, adult
CPT/HCPCS: 36415; 71010; 73020; 80048; 80053; 80305; 81003; 82040; 83036; 83735; 83880; 84100; 84439; 84443; 84484; 85025; 85610; 85730; 87040; 87081; 87804; 92610; 93005; 93971; 94640; 96365; 97110; 99291; J1885; J1956; J2001; J2930; J3475; J3480; J3490; J7030; J7060; J7620; Q0092

== ENCOUNTER 2018-08-14 01:55 | Inpatient (IN) | payer SELFPAY ==
[~2018-08-14] VITALS: Ht 149.9 cm; Wt 63.5 kg
[~2018-08-14 01:55] MED LIST: ALBU117P IH; CHLO25TA33 PO; CLIN300C2 PO; LEVO750T2 PO; LISI10TA11 PO; PRED50TA3 PO
[2018-08-14 01:57] VITALS: BP 170/92
--- NOTE | 2018-08-14 02:04 | NUR ---
PT TAKEN TO BED 3
--- NOTE | 2018-08-14 02:05 | NUR ---
BROUGHT IN BY SON WITH C/O COUGH, DIFF OF BREATHING FOR 3 DAYS, WITH WHEEZING, PATIENT ALERT, AWAKE , ORIENTED.
[2018-08-14] MEDS ORDERED: predniSONE 20 MG TAB PO ONE (02:15)
[2018-08-14] MEDS ORDERED: ALBUTEROL SULFATE/IPRATROPIU 3 ML SOL IH ONE (02:15)
[2018-08-14] MEDS ORDERED: LEVOFLOXACIN 750 MG/D5W PREMIX 150 ML IV ONE (02:15)
[2018-08-14] MEDS ORDERED: ALBUTEROL 0.083% 2.5 MG/3 ML NEBU INH ONE (02:15)
--- NOTE | 2018-08-14 02:21 | NUR ---
EKG PERFORMED AT BEDSIDE WITH RN PRESENT. PT COVERED IN GOWN DURING PROCEDURE
--- NOTE | 2018-08-14 02:21 | NUR ---
Respiratory Therapist at bedside for respiratory intervention.
--- NOTE | 2018-08-14 02:34 | NUR ---
X-Ray at bedside.
[2018-08-14 03:08] LABS: ANION GAP 4.4 (8-16); CARBON DIOXIDE 32.4 mmol/L (21-32); CHLORIDE 112 mmol/L (98-107); CREATININE 0.8 mg/dL (0.6-1.3); GLUCOSE 117 mg/dL (74-106); POTASSIUM 3.8 mmol/L (3.5-5.1); SODIUM SERUM 145 mmol/L (136-145); UREA NITROGEN, BLOOD 13 mg/dL (7-18)
[2018-08-14 03:11] LABS: BASOPHILS % (AUTO) 0.2 % (0.0-2.0); EOSINOPHILS # (AUTO) 0.3 K/uL (0-0.4); EOSINOPHILS % (AUTO) 2.4 % (0.0-4.0); HEMATOCRIT 40.6 % (36-48); HEMOGLOBIN 13.4 g/dL (12.0-16.0); LYMPHOCYTES # (AUTO) 2.5 K/uL (2.5-16.5); MEAN CORPUSCULAR HEMOGLOBIN 30 pg (27-31); MEAN CORPUSCULAR HGB CONC 33 g/dL (33-37); MEAN CORPUSCULAR VOLUME 89.9 fL (80-94); MONOCYTES # (AUTO) 0.7 K/uL (0.8-1.0); MONOCYTES % (AUTO) 5.2 % (1.7-9.3); NEUTROPHILS # (AUTO) 10.4 K/uL (1.8-7.7); NEUTROPHILS % (AUTO) 74.2 % (42.2-75.2); PLATELET COUNT (AUTO) 217 K/uL (140-450); RED BLOOD CELL COUNT(AUTO) 4.51 MIL/uL (4.20-5.40); RED CELL DISTRIBUTION WIDTH 13.2 % (11.6-13.7)
[2018-08-14 03:14] LABS: ALBUMIN 3.8 g/dL (3.4-5.0); ASPARTATE AMINOTRANSFERASE 23 U/L (15-37); TOTAL BILIRUBIN 0.4 mg/dL (0.0-1.0)
[2018-08-14 03:19] LABS: APPEARANCE,URINE CLEAR (CLEAR); BILIRUBIN,URINE NEGATIVE (NEGATIVE); BLOOD, URINE TRACE-I (NEGATIVE); COLOR,URINE YELLOW (YELLOW); LEUKOCYTE ESTERASE ,URINE NEGATIVE (NEGATIVE); NITRITE, URINE NEGATIVE (NEGATIVE); PH,URINE 5.5 (5.0-9.0); UGLUCOSE NEGATIVE (NEGATIVE)
[2018-08-14 03:20] LABS: RBC,URINE 0-5 (RARE) /HPF (0-5); WBC,URINE 0-5 (RARE) /HPF (0-5)
[2018-08-14 03:33] LABS: CKMB RELATIVE INDEX 1.4 (0.0-2.5); CREATINE KINASE MB 3.8 ng/mL (0-3.6)
--- NOTE | 2018-08-14 04:30 | NUR ---
ALL RESULTS BACK AND NOTED BY ERMD AND FOR ADMISSION.
[2018-08-14] MEDS ORDERED: MORPHINE SULFATE 2 MG/ML SYR IVP PRN ×2 (04:35→05:00)
[2018-08-14] MEDS ORDERED: ZOLPIDEM 5 MG TAB PO PRN (04:35)
[2018-08-14] MEDS ORDERED: DOCUSATE SODIUM 100 MG GELCAP PO PRN (04:35)
[2018-08-14] MEDS ORDERED: HYDROcodone/APAP 5/325 MG 1 TAB TAB PO PRN ×2 (04:35→05:00)
[2018-08-14] MEDS ORDERED: LORazepam 2 MG/ML VIAL IM/IVP PRN (04:35)
[2018-08-14] MEDS ORDERED: ACETAMINOPHEN 325 MG TAB PO PRN (04:35)
[2018-08-14] MEDS ORDERED: ONDANSETRON 4 MG/2 ML VIAL IM/IVP PRN (04:35)
[2018-08-14 04:51] VITALS: BP 142/74
--- NOTE | 2018-08-14 04:51 | NUR ---
RECEIVED REPORT FROM DAYSHIFT NURSE AT BEDSIDE FOR CONTINUITY OF CARE. PT AAOX3. ARABIC SPEAKING. FALL RISK. NO SOB NO S/S OF DISTRESS ON 02 2L NC. IV NOTED RAC 20G SALINE LOCK. BED LOWERED CALL LIGHT WITHIN REACH. PT ORIENTED TO ROOM. WILL CONTINUE TO MONITOR.
[2018-08-14] MEDS: NACL 0.9% 1,000 ML IV SCH ×2 (06:24→22:51)
--- NOTE | 2018-08-14 07:32 | NUR ---
RECEIVED BEDSIDE REPORT FROM STUDIO OPERATIONS MANAGER RN. PT IN STABLE CONDITION, RESTING IN BED. PT AAOX3. MACEDONIAN SPEAKING. NO SOB NO S/S OF DISTRESS ON O2 2L NC. LUNGS CTA. SKIN INTACT. PER STUDIO OPERATIONS MANAGER RN, PT IS INCONTINENT OF URINE AND AMBULATORY WITH CANE. PLACED ON FALL RISK PRECAUTIONS. IV SITE PATENT AND ASYMPTOMATIC, INFUSING IVF PER MD ORDERS. BED LOWERED CALL LIGHT WITHIN REACH. PT ORIENTED TO ROOM. WILL CONTINUE TO MONITOR. Addendum: 08/14/18 at 1113 by Hilda Portillo Meng RN PER STUDIO OPERATIONS MANAGER RN, PATIENT HAS NOT BROUGHT IN HOME MEDS. PATIENT/FAMILY AND DOCTOR AWARE. FAMILY TO BRING IN MEDICATIONS.
[2018-08-14 08:00] VITALS: BP 144/68
--- NOTE | 2018-08-14 08:13 | NUR ---
NOTIFIED DR. CHERRY THAT THERE IS NO CODE STATUS OR DIET ORDERED AND PT IS INQUIRING ABOUT BREAKFAST.
--- NOTE | 2018-08-14 08:24 | NUR ---
PATIENT HAS BEEN SCREENED AND CATEGORIZED HIGH NUTRITION RISK. PATIENT WILL BE SEEN WITHIN 1-2 DAYS OF ADMISSION. 08/14/18-08/15/[address]
--- NOTE | 2018-08-14 08:55 | NUR ---
PER DR. CHERRY, HOLD BREAKFAST TRAY UNTIL IMAGING OF ABD COMPLETE. FNS IS BRINGING TRAY TO UNIT, NOTIFIED REHANGER TO HOLD TRAY WHEN IT GETS HERE.
--- NOTE | 2018-08-14 09:29 | NUR ---
PATIENT FOUND EATING BREAKFAST TRAY IN ROOM. NOTIFIED CT THAT PATIENT HAS/IS EATING BREAKFAST NOW. PER CT, PT WILL NEED TO BE NPO FOR 6 HOURS. THEY WILL COME GET PATIENT AFTER 6 HOURS. WILL NOTIFY STAFF TO HOLD LUNCH TRAY.
[2018-08-14] MEDS: LISINOPRIL 10 MG TAB PO SCH (09:31)
[2018-08-14] MEDS: LACTOBACILLUS RHAMNOSUS GG 1 EACH CAP PO SCH (09:31)
--- NOTE | 2018-08-14 09:47 | NUR ---
RADIOLOGY CALLED AND STATED PT DOES NOT NEED TO BE NPO [address] ABD/PELVIS W/O CONTRAST. 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 NOTIFIED TECH THAT PATIENT IS AMBULATORY W/ CANE, PER ANKLE PATCH MOLDER RN.
[2018-08-14 12:00] VITALS: BP 117/53
--- NOTE | 2018-08-14 12:42 | NUR ---
NOTIFIED PHARMACY THAT TYLENOL UNABLE TO BE LOCATED IN [facility]. PHARMACY TO FIX IT.
[2018-08-14] MEDS: CLINDAMYCIN PHOS 600MG/D5W PM 50 ML IV SCH ×2 (13:30→20:48)
--- NOTE | 2018-08-14 14:30 | NUR ---
PT STATES THAT HEADACHE HAS SUBSIDED AFTER TYLENOL ADMINISTRATION.
[2018-08-14 16:00] VITALS: BP 117/78
--- NOTE | 2018-08-14 18:17 | NUR ---
PT RESTING IN BED, RESPIRATIONS EVEN AND UNLABORED. NO S/S DISTRESS. ALL SAFETY PRECAUTIONS IN PLACE, WILL CONTINUE TO MONITOR.
--- NOTE | 2018-08-14 19:09 | NUR ---
ENDORSED POC TO ENGINE MANAGER RN. PT IN STABLE CONDITION.
--- NOTE | 2018-08-14 19:30 | NUR ---
RECEIVED ENDORSEMENT FROM AM SHIFT NURSE. PATIENT IN STABLE CONDITION, RESTING IN BED. PT A/Ox3. PUERTO RICAN SPEAKING. NO SOB NO S/S OF DISTRESS ON O2 2LPM VIA NASAL CANNULA. LUNGS CTA. SKIN INTACT. PATIENT IS INCONTINENT, ABLE TO AMBULATE WITH A CANE OR 1-PERSON ASSIST. PLACED ON FALL RISK PRECAUTIONS. IV SITE PATENT AND ASYMPTOMATIC, INFUSING IVF PER MD ORDERS. BED IN THE LOWEST POSITION, CALL LIGHT WITHIN REACH. WILL CONTINUE TO MONITOR.
[2018-08-14 20:00] VITALS: BP 112/52
[2018-08-14 20:43] LABS: PROTHROMBIN TIME 9.4 secs (10.8-13.4)
[2018-08-14 21:10] LABS: CHOL/HDL RATIO 5.1 (1-4.5); PHOSPHORUS 3.7 mg/dL (2.5-4.9); THYROID STIMULATING HORMONE 8.97 uIU/mL (0.34-3.74)
--- NOTE | 2018-08-14 21:30 | NUR ---
CHECKS MADE. NO SOB OR DISTRESS NOTED. WILL CONTINUE TO MONITOR.
[2018-08-15] VITALS: BP 135/55
--- NOTE | 2018-08-15 00:10 | NUR ---
VITALS TAKEN, NO SOB OR DISTRESS NOTED. WILL CONTINUE TO MONITOR.
--- NOTE | 2018-08-15 02:00 | NUR ---
ROUNDS DONE. NO SOB OR DISTRESS NOTED.
[2018-08-15 04:00] VITALS: BP 131/50
--- NOTE | 2018-08-15 04:30 | NUR ---
PATIENT ASLEEP, VISIBLE CHEST RISE AND FALL NOTED.
[2018-08-15] MEDS: CLINDAMYCIN PHOS 600MG/D5W PM 50 ML IV SCH (04:40)
[2018-08-15] MEDS ORDERED: methylPREDNISolone SS 125 MG/2 ML VIAL IVP SCH ×4 (06:30→15:00)
[2018-08-15 07:03] LABS: BASOPHILS % (AUTO) 0.5 % (0.0-2.0); EOSINOPHILS # (AUTO) 0.2 K/uL (0-0.4); EOSINOPHILS % (AUTO) 2.4 % (0.0-4.0); HEMATOCRIT 37.5 % (36-48); HEMOGLOBIN 12.4 g/dL (12.0-16.0); LYMPHOCYTES # (AUTO) 2.7 K/uL (2.5-16.5); LYMPHOCYTES % (AUTO) 26.3 % (20.5-51.1); MEAN CORPUSCULAR HEMOGLOBIN 30 pg (27-31); MEAN CORPUSCULAR HGB CONC 33 g/dL (33-37); MEAN CORPUSCULAR VOLUME 89.7 fL (80-94); MONOCYTES # (AUTO) 0.7 K/uL (0.8-1.0); MONOCYTES % (AUTO) 7.3 % (1.7-9.3); NEUTROPHILS # (AUTO) 6.5 K/uL (1.8-7.7); NEUTROPHILS % (AUTO) 63.5 % (42.2-75.2); PLATELET COUNT (AUTO) 217 K/uL (140-450); RED BLOOD CELL COUNT(AUTO) 4.18 MIL/uL (4.20-5.40); RED CELL DISTRIBUTION WIDTH 13.6 % (11.6-13.7); WHITE BLOOD COUNT (AUTO) 10.3 K/uL (4.8-10.8)
[2018-08-15 07:15] LABS: ANION GAP 13.4 (8-16); CARBON DIOXIDE 32.1 mmol/L (21-32); CHLORIDE 104 mmol/L (98-107); CREATININE 0.9 mg/dL (0.6-1.3); GLUCOSE 100 mg/dL (74-106); POTASSIUM 3.5 mmol/L (3.5-5.1); SODIUM SERUM 146 mmol/L (136-145); UREA NITROGEN, BLOOD 16 mg/dL (7-18)
--- NOTE | 2018-08-15 07:15 | NUR ---
RECEIVED PT REPORT FROM VICE PRESIDENT OF MANUFACTURING NURSE AT BEDSIDE. PT IN BED, AAOx3. KINYARWANDA SPEAKING. NO SOB NO S/S OF DISTRESS ON O2 1L NC. SKIN INTACT. IV CATH TO RIGHT AC 20G, PATENT AND INTACT, INFUSING NS WELL. IV CATH TO RIGHT HAND 22G, FLUSHED, PATENT AND INTACT, SL. ON TELE. FALL PRECAUTIONS IN PLACE. BED IN THE LOWEST POSITION, CALL LIGHT WITHIN REACH. WILL CONTINUE TO MONITOR.
[2018-08-15 07:18] LABS: MAGNESIUM 1.8 mg/dL (1.8-2.4); PHOSPHORUS 3.5 mg/dL (2.5-4.9)
--- NOTE | 2018-08-15 07:20 | NUR ---
ENDORSED PATIENT TO AM SHIFT RN. PATIENT IN STABLE CONDITION.
[2018-08-15 08:00] VITALS: BP 133/58
[2018-08-15] MEDS: LACTOBACILLUS RHAMNOSUS GG 1 EACH CAP PO SCH (08:18)
[2018-08-15] MEDS: LISINOPRIL 10 MG TAB PO SCH (08:19)
[2018-08-15] MEDS ORDERED: ATOR20TA40 PO (08:33)
[2018-08-15] MEDS ORDERED: FLUT1DSK IH (08:33)
[2018-08-15] MEDS ORDERED: PRED10TA5 PO (08:37)
[2018-08-15] MEDS ORDERED: ATORVASTATIN 20 MG TAB PO SCH (09:00)
[2018-08-15] MEDS ORDERED: ALBUTEROL SULFATE/IPRATROPIU 3 ML SOL IH PRN (10:25)
--- NOTE | 2018-08-15 10:35 | NUR ---
AMBULATED WITH PT TO END OF THE HALLWAY AND BACK TO HER ROOM. PT WALKED WITH HER CANE. SPO2 SAT 89-91%. NO S/S OF ACUTE DISTRESS AT THIS TIME.
[2018-08-15] MEDS ORDERED: PNEUMOCOCCAL VACCINE 23 MCG/0.5 ML VIAL IMVAC SCH (11:15)
[2018-08-15] MEDS ORDERED: LACT1.4C PO (11:29)
[2018-08-15] MEDS ORDERED: CLIN150C1 PO (11:29)
--- NOTE | 2018-08-15 12:05 | NUR ---
DISCHARGE INSTRUCTIONS AND MED TEACHING GIVEN WITH DIRECTOR OF COMMUNICATIONS PHONE. WEIGHT COUNT OPERATOR DOMENICO, [id number]. PNA VAC GIVEN. DC'S BOTH IV CATH, TIPS INTACT, PRESSURE APPLIED. WRIST BANDS REMOVED. PT LEFT WITH ALL HER BELONGINGS WITH HER DAUGHTER. Addendum: 08/15/18 at 1219 by Tom Cueva RN BENNY RUIZ
--- NOTE | 2018-08-15 12:18 | NUR ---
PT IS STILL EATING LUNCH IN THE CHAIR, DAUGHTER JOSEPH IN THE ROOM
--- NOTE | 2018-08-15 12:25 | NUR ---
PT LEFT WITH HER DAUGHTER.
[2018-08-15] MEDS ORDERED: ALBUTEROL SULFATE/IPRATROPIU 3 ML SOL IH SCH (13:00)
[2018-08-16] MEDS ORDERED: methylPREDNISolone SS 40 MG/ML VIAL IVP SCH ×2 (05:00→15:00)
[2018-08-18] MEDS ORDERED: methylPREDNISolone SS 40 MG/ML VIAL IVP SCH (09:00)
== END 2018-08-15 12:25 | disposition home or self-care (01) | DRG 871 ==
LOC: MED 01:55 → MTU 04:36 → MED 04:47
PROVIDERS: ADMIT General Practice; ATTEND General Practice
DX: A41.9 Sepsis, unspecified organism (principal); J69.0 Pneumonitis due to inhalation of food and vomit; J45.901 Unspecified asthma with (acute) exacerbation; E87.0 Hyperosmolality and hypernatremia; I10 Essential (primary) hypertension; E87.8 Other disorders of electrolyte and fluid balance, not elsewhere classified; K59.00 Constipation, unspecified; E78.5 Hyperlipidemia, unspecified; E66.3 Overweight; Z88.0 Allergy status to penicillin; Z79.899 Other long term (current) drug therapy; Z91.19 Patient's noncompliance with other medical treatment and regimen; Z68.28 Body mass index [BMI] 28.0-28.9, adult
CPT/HCPCS: 36415; 36600; 71045; 80048; 80053; 81001; 82150; 82550; 82553; 82803; 83036; 83605; 83690; 83735; 83880; 84100; 84436; 84443; 84484; 85025; 85610; 85730; 87040; 87081; 87086; 87804; 90732; 93005; 94640; 99285; J0696; J1644; J1956; J2930; J3490; J7030; J7060; J7512; J7613; J7620; Q0092; Q9967

== ENCOUNTER 2019-02-03 13:10 | Emergency (ER) | payer MEDICAID ==
[~2019-02-03] VITALS: Ht 160 cm; Wt 58.1 kg
[~2019-02-03 13:10] MED LIST changes: +ATOR20TA40 PO; +CLIN150C1 PO; -CLIN300C2 PO; +FLUT1DSK IH; +LACT1.4C PO; -LEVO750T2 PO; +PRED10TA5 PO; -PRED50TA3 PO
[2019-02-03 13:20] VITALS: BP 146/96
[2019-02-03] MEDS ORDERED: LACTULOSE 20 GM/30 ML UDC PO ONE (13:40)
[2019-02-03] MEDS ORDERED: NACL 0.9% 1,000 ML IV ONE (13:40)
[2019-02-03 13:55] LABS: BASOPHILS # (AUTO) 0.1 K/uL (0.00-0.22); BASOPHILS % (AUTO) 0.7 % (0.0-2.0); EOSINOPHILS # (AUTO) 0.1 K/uL (0-0.4); EOSINOPHILS % (AUTO) 1.2 % (0.0-4.0); HEMATOCRIT 41.2 % (36-48); HEMOGLOBIN 13.8 g/dL (12.0-16.0); LYMPHOCYTES # (AUTO) 3.4 K/uL (2.5-16.5); LYMPHOCYTES % (AUTO) 28.9 % (20.5-51.1); MEAN CORPUSCULAR HEMOGLOBIN 30 pg (27-31); MEAN CORPUSCULAR HGB CONC 34 g/dL (33-37); MONOCYTES # (AUTO) 0.9 K/uL (0.8-1.0); MONOCYTES % (AUTO) 7.9 % (1.7-9.3); NEUTROPHILS # (AUTO) 7.2 K/uL (1.8-7.7); NEUTROPHILS % (AUTO) 61.3 % (42.2-75.2); PLATELET COUNT (AUTO) 284 K/uL (140-450); RED BLOOD CELL COUNT(AUTO) 4.58 MIL/uL (4.20-5.40); WHITE BLOOD COUNT (AUTO) 11.7 K/uL (4.8-10.8)
[2019-02-03 14:02] LABS: ANION GAP 10.9 (8-16); CARBON DIOXIDE 31.2 mmol/L (21-32); CHLORIDE 102 mmol/L (98-107); GLUCOSE 98 mg/dL (74-106); POTASSIUM 3.1 mmol/L (3.5-5.1); SODIUM SERUM 141 mmol/L (136-145); UREA NITROGEN, BLOOD 23 mg/dL (7-18)
[2019-02-03 14:07] LABS: ALBUMIN 3.7 g/dL (3.4-5.0); ASPARTATE AMINOTRANSFERASE 27 U/L (15-37); TOTAL BILIRUBIN 0.4 mg/dL (0.0-1.0)
[2019-02-03] MEDS ORDERED: POTASSIUM CHLORIDE 10 MEQ TABER PO ONE (14:10)
[2019-02-03] MEDS ORDERED: MORPHINE SULFATE 2 MG/ML SYR IVP ONE (14:40)
[2019-02-03 14:41] LABS: APPEARANCE,URINE CLEAR (CLEAR); BILIRUBIN,URINE NEGATIVE (NEGATIVE); BLOOD, URINE TRACE-I (NEGATIVE); COLOR,URINE YELLOW (YELLOW); LEUKOCYTE ESTERASE ,URINE NEGATIVE (NEGATIVE); NITRITE, URINE NEGATIVE (NEGATIVE); PH,URINE 5.5 (5.0-9.0); UGLUCOSE NEGATIVE (NEGATIVE)
[2019-02-03 14:56] LABS: RBC,URINE 0-5 /HPF (0-5); WBC,URINE NONE SEEN /HPF (0-5)
[2019-02-03 16:19] VITALS: BP 124/82
== END 2019-02-03 16:20 | disposition home or self-care (01) ==
LOC: MED 13:10
DX: K59.00 Constipation, unspecified (principal); E87.6 Hypokalemia; R07.89 Other chest pain; R11.2 Nausea with vomiting, unspecified; I10 Essential (primary) hypertension; J45.909 Unspecified asthma, uncomplicated; Z88.0 Allergy status to penicillin; Z79.899 Other long term (current) drug therapy
CPT/HCPCS: 36415; 71045; 74176; 80053; 81001; 83690; 83880; 84484; 85025; 96374; 99284; J2270; J7030

== ENCOUNTER 2019-07-15 15:18 | Emergency (ER) | payer MEDICAID ==
[~2019-07-15] VITALS: Ht 144.8 cm; Wt 63.5 kg
--- NOTE | 2019-07-15 15:30 | NUR ---
84/F ambulatory, presents to ED with son, c/o fever, cough, chest pain, sob, x3 days. Pt awake and alert, skin normal color warm and dry, spo2 90% on ra, spo2 96% on 2L nc, rr 22 even and mildly labored. Lung sounds with expiratory wheezes BL. Hx asthma, HTN
--- NOTE | 2019-07-15 15:30 | NUR ---
pt ambulated to bed with son
[2019-07-15 15:31] VITALS: BP 151/93
[2019-07-15] MEDS ORDERED: ALBUTEROL SULFATE/IPRATROPIU 3 ML SOL IH ONE (15:35)
--- NOTE | 2019-07-15 15:55 | NUR ---
HHNTHERAPY AND RESPIRATORY DRUG GIVEN ORDERED ENCOURAGED PATIENT FOR DEEP BREATHING DURING THERAPY
[2019-07-15 16:42] LABS: BASOPHILS # (AUTO) 0.1 K/uL (0.00-0.22); BASOPHILS % (AUTO) 0.7 % (0.0-2.0); EOSINOPHILS # (AUTO) 0.2 K/uL (0-0.4); EOSINOPHILS % (AUTO) 1.8 % (0.0-4.0); HEMATOCRIT 42.3 % (36-48); LYMPHOCYTES # (AUTO) 1.6 K/uL (2.5-16.5); LYMPHOCYTES % (AUTO) 15.4 % (20.5-51.1); MEAN CORPUSCULAR HEMOGLOBIN 30 pg (27-31); MEAN CORPUSCULAR HGB CONC 33 g/dL (33-37); MEAN CORPUSCULAR VOLUME 89.8 fL (80-94); MONOCYTES # (AUTO) 0.6 K/uL (0.8-1.0); MONOCYTES % (AUTO) 6.1 % (1.7-9.3); PLATELET COUNT (AUTO) 237 K/uL (140-450); RED BLOOD CELL COUNT(AUTO) 4.71 MIL/uL (4.20-5.40); RED CELL DISTRIBUTION WIDTH 13.7 % (11.6-13.7); WHITE BLOOD COUNT (AUTO) 10.5 K/uL (4.8-10.8)
[2019-07-15 16:58] LABS: PROTHROMBIN TIME 9.3 secs (10.8-13.4)
[2019-07-15 17:03] LABS: ALBUMIN 4.1 g/dL (3.4-5.0); ANION GAP 10.3 (8-16); ASPARTATE AMINOTRANSFERASE 27 U/L (15-37); CARBON DIOXIDE 30.6 mmol/L (21-32); CHLORIDE 102 mmol/L (98-107); CREATININE 0.9 mg/dL (0.6-1.3); GLUCOSE 106 mg/dL (74-106); POTASSIUM 3.9 mmol/L (3.5-5.1); SODIUM SERUM 139 mmol/L (136-145); TOTAL BILIRUBIN 0.5 mg/dL (0.0-1.0); UREA NITROGEN, BLOOD 14 mg/dL (7-18)
[2019-07-15] MEDS ORDERED: methylPREDNISolone SS 125 MG/2 ML VIAL IVP ONE (17:15)
[2019-07-15 17:34] LABS: APPEARANCE,URINE CLEAR (CLEAR); BILIRUBIN,URINE NEGATIVE (NEGATIVE); BLOOD, URINE NEGATIVE (NEGATIVE); COLOR,URINE YELLOW (YELLOW); LEUKOCYTE ESTERASE ,URINE TRACE (NEGATIVE); NITRITE, URINE NEGATIVE (NEGATIVE); UGLUCOSE NEGATIVE (NEGATIVE)
[2019-07-15 17:45] LABS: RBC,URINE NONE SEEN /HPF (0-5); WBC,URINE 0-5 /HPF (0-5)
[2019-07-15 17:51] VITALS: BP 122/43
--- NOTE | 2019-07-15 17:54 | NUR ---
Patient discharged with v/s stable. Written and verbal after care instructions given and explained. Patient alert, oriented and verbalized understanding of instructions. Ambulatory with steady gait. All questions addressed prior to discharge. ID band removed. Patient advised to follow up with PMD. Rx of PREDNISONE, MINIELITE, ALBUTEROL SULFATE given. Patient educated on indication of medication including possible reaction and side effects. Opportunity to ask questions provided and answered.
== END 2019-07-15 17:54 | disposition home or self-care (01) ==
LOC: MED 15:18
DX: J45.901 Unspecified asthma with (acute) exacerbation (principal); I10 Essential (primary) hypertension; Z79.899 Other long term (current) drug therapy; Z79.51 Long term (current) use of inhaled steroids; Z88.0 Allergy status to penicillin
CPT/HCPCS: 36415; 71045; 80053; 81001; 83605; 83880; 84484; 85025; 85610; 85730; 87040; 87086; 87804; 94640; 96374; 99284; J2930; J7620; Q0092; 93005

== ENCOUNTER 2019-12-03 15:21 | Emergency (ER) | payer MEDICAID ==
[~2019-12-03] VITALS: Ht 149.9 cm; Wt 77.1 kg
[2019-12-03 15:27] VITALS: BP 147/65
[2019-12-03] MEDS ORDERED: NACL 0.9% 1,000 ML IV ONE (15:52)
[2019-12-03] MEDS ORDERED: MORPHINE SULFATE 4 MG/ML SYR IVP ONE (15:55)
[2019-12-03] MEDS ORDERED: ONDANSETRON 4 MG/2 ML VIAL IVP ONE (15:55)
--- NOTE | 2019-12-03 16:21 | NUR ---
84 YO FEMALE C/O AB PAIN/DISTENTION X 2-3 WEEKS PAIN WORSE TO L SIDE PMH- ASTHMA , HTN
[2019-12-03 16:52] LABS: BASOPHILS % (AUTO) 0.7 % (0.0-2.0); EOSINOPHILS # (AUTO) 0.1 K/uL (0-0.4); HEMATOCRIT 38.2 % (36-48); HEMOGLOBIN 12.7 g/dL (12.0-16.0); LYMPHOCYTES # (AUTO) 2.3 K/uL (2.5-16.5); LYMPHOCYTES % (AUTO) 33.4 % (20.5-51.1); MEAN CORPUSCULAR HEMOGLOBIN 30 pg (27-31); MEAN CORPUSCULAR HGB CONC 33 g/dL (33-37); MEAN CORPUSCULAR VOLUME 90.5 fL (80-94); MONOCYTES # (AUTO) 0.6 K/uL (0.8-1.0); MONOCYTES % (AUTO) 8.7 % (1.7-9.3); NEUTROPHILS # (AUTO) 3.9 K/uL (1.8-7.7); NEUTROPHILS % (AUTO) 55.2 % (42.2-75.2); PLATELET COUNT (AUTO) 219 K/uL (140-450); RED BLOOD CELL COUNT(AUTO) 4.22 MIL/uL (4.20-5.40); RED CELL DISTRIBUTION WIDTH 13.9 % (11.6-13.7)
[2019-12-03 17:09] LABS: ALBUMIN 3.6 g/dL (3.4-5.0); ASPARTATE AMINOTRANSFERASE 20 U/L (15-37); CARBON DIOXIDE 31.5 mmol/L (21-32); CHLORIDE 105 mmol/L (98-107); GLUCOSE 146 mg/dL (74-106); LIPASE 79 U/L (73-393); POTASSIUM 3.5 mmol/L (3.5-5.1); SODIUM SERUM 145 mmol/L (136-145); TOTAL BILIRUBIN 0.4 mg/dL (0.0-1.0); UREA NITROGEN, BLOOD 13 mg/dL (7-18)
[2019-12-03 17:16] LABS: APPEARANCE,URINE HAZY (CLEAR); BILIRUBIN,URINE NEGATIVE (NEGATIVE); BLOOD, URINE NEGATIVE (NEGATIVE); COLOR,URINE DARK YELLOW (YELLOW); LEUKOCYTE ESTERASE ,URINE 1+ (NEGATIVE); NITRITE, URINE NEGATIVE (NEGATIVE); PH,URINE 5.5 (5.0-9.0); UGLUCOSE NEGATIVE (NEGATIVE)
[2019-12-03 17:40] LABS: RBC,URINE NONE SEEN /HPF (0-5); WBC,URINE 20-60 /HPF (0-5)
--- NOTE | 2019-12-03 19:01 | NUR ---
Patient discharged with v/s stable. Written and verbal after care instructions given and explained. Patient verbalized understanding. Ambulatory with steady gait. All questions addressed prior to discharge. Advised to follow up with PMD.
== END 2019-12-03 19:01 | disposition home or self-care (01) ==
LOC: MED 15:21
DX: N39.0 Urinary tract infection, site not specified (principal); J45.909 Unspecified asthma, uncomplicated; I10 Essential (primary) hypertension; Z79.899 Other long term (current) drug therapy; Z88.0 Allergy status to penicillin
CPT/HCPCS: 12001; 36415; 74176; 80053; 81001; 83690; 85025; 87086; 87186; 96374; 96375; 99284; J2270; J2405; J7030